=== PATIENT | female | born 1970 ===

== ENCOUNTER 2024-09-02 10:32 | Outpatient (CLI) | payer OTHER ==
[~2024-09-02 10:32] MED LIST: DICLOFENAC POTA50 MG PO; VOLTAREN ARTHRI20 GM TOP
== END 2024-09-02 10:45 | disposition home or self-care (01) ==
LOC: MAMO-SONO 10:32
DX: N64.4 Mastodynia (principal); Z12.31 Encounter for screening mammogram for malignant neoplasm of breast; J40 Bronchitis, not specified as acute or chronic; I10 Essential (primary) hypertension; M17.0 Bilateral primary osteoarthritis of knee